=== PATIENT | female | born 1990 ===

== ENCOUNTER 2018-10-28 09:46 | Outpatient (CLI) | payer OTHER | END 2018-10-28 09:47 | disposition home or self-care (01) | LOC: C.LAB 09:46 | DX: Z34.91 Encounter for supervision of normal pregnancy, unspecified, first trimester (principal) ==

== ENCOUNTER 2018-11-12 19:36 | Emergency (ER) | payer OTHER ==
[2018-11-12 19:44] VITALS: RESP 18; TEMP 98.6; O2SAT 100
[2018-11-12] MEDS ORDERED: Sodium Chloride 0.9% 1,000 ML IV STA (19:58)
[2018-11-12 20:09] LABS: BASO # 0.1 K/uL (0.0-0.2); BASO % 0.6 % (0.0-2.0); EOS # 0.1 K/uL (0.0-0.7); EOS % 0.6 % (0.0-4.0); LYMPH # 1.9 K/uL (1.0-4.3); LYMPH % 19.3 % (20.0-40.0); MEAN CELL VOLUME 90.4 fL (81.0-99.0); MEAN CORPUSCULAR HEMOGLOBIN 30.5 pg (27.0-31.0); MEAN CORPUSCULAR HGB CONC 33.7 g/dL (33.0-37.0); MEAN PLATELET VOLUME 8.1 fL (7.2-11.7); MONO # 0.7 K/uL (0.0-0.8); MONO % 6.8 % (0.0-10.0); NEUT # 7.2 K/uL (1.8-7.0); NEUT % 72.7 % (50.0-75.0); RBC 3.95 Mil/uL (3.80-5.20); RED CELL DISTRIBUTION WIDTH 12.9 % (11.5-14.5)
[2018-11-12 20:26] LABS: ALB/GLOB RATIO 1.6 (1.0-2.1); ALBUMIN 4.2 g/dL (3.5-5.0); ALT/SGPT 16 U/L (9-52); AST/SGOT 17 U/L (14-36); BLOOD UREA NITROGEN 9 mg/dL (7-17); GFR NON-AFRICAN AMERICAN > 60
--- NOTE | 2018-11-12 21:50 | C.PDOC ---
History Of Present Illness 28 y/o female, who is 11 weeks , comes in to ED complaining of left groin pain and vaginal spotting that started 10 minutes prior to arrival. Patient states she started seeing a core dipper 3-4 weeks ago and had US done that was normal. Patient has no other complaints. Time Seen by Provider: 11/12/18 19:57 Chief Complaint (Nursing): Female Genitourinary History Per: Patient History/Exam Limitations: no limitations Onset/Duration Of Symptoms: Hrs Current Symptoms Are (Timing): Still Present Past Medical History Reviewed: Historical Data, Nursing Documentation, Vital Signs Vital Signs: Last Vital Signs Temp 98.6 F 11/12/18 19:39 Pulse 110 H 11/12/18 19:39 Resp 18 11/12/18 19:39 BP 121/82 11/12/18 19:39 Pulse Ox 100 11/12/18 19:39 Surgical History: Tonsillectomy Family History: States: No Known Family Hx - Social History Hx Alcohol Use: No Hx Substance Use: No - Immunization History Hx Tetanus Toxoid Vaccination: No Hx Influenza Vaccination: No Hx Pneumococcal Vaccination: No Review Of Systems Except As Marked, All Systems Reviewed And Found Negative. Constitutional: Negative for: Fever, Chills Gastrointestinal: Negative for: Nausea, Vomiting, Diarrhea Genitourinary: Positive for: Other (Left groin pain; vaginal spotting) Physical Exam - Physical Exam Appears: Non-toxic, No Acute Distress Skin: Warm, Dry Head: Atraumatic, Normacephalic Eye(s): bilateral: Normal Inspection Oral Mucosa: Moist Neck: Supple Cardiovascular: Rhythm Regular, No Murmur Respiratory: Normal Breath Sounds, No Rales, No Rhonchi, No Wheezing Gastrointestinal/Abdominal: Soft, Tenderness (mild tenderness in left suprapubic area) Extremity: Bilateral: Atraumatic, Normal Color And Temperature, Normal ROM Neurological/Psych: Oriented x3, Normal Speech ED Course And Treatment - Laboratory Results Result Diagrams: 11/12/18 20:06 11/12/18 20:06 Lab Results: Total Bilirubin 0.2 mg/dL (0.2-1.3) 11/12/18 20:06 AST 17 U/L (14-36) 11/12/18 20:06 ALT 16 U/L (9-52) 11/12/18 20:06 Alkaline Phosphatase 34 U/L (38-126) L 11/12/18 20:06 Total Protein 6.9 g/dL (6.3-8.3) 11/12/18 20:06 Albumin 4.2 g/dL (3.5-5.0) 11/12/18 20:06 Globulin 2.7 gm/dL (2.2-3.9) 11/12/18 20:06 Albumin/Globulin Ratio 1.6 (1.0-2.1) 11/12/18 20:06 Beta HCG, Quant 786276.00 mIU/ML 11/12/18 20:06 O2 Sat by Pulse Oximetry: 100 (RA) Pulse Ox Interpretation: Normal - CT Scan/US OB US Other Rad Studies (CT/US): Read By Radiologist, Radiology Report Reviewed CT/US Interpretation: COMMENTS: A single intrauterine is identified with crown/rump length of 4 cm, which corresponds to the mean estimated gestational age of 10 weeks 6 days. heart motion is present, 154 beats per minute. Yolk sac is identified measuring 0.5 cm. pole is identified. Gestational sac measures 6.03 cm, mean sac diamter. This will correlate with age obtained by CRL method. Subchorionic bleeding is seen measuring 1.3 x 0.8 x 0.7 cm. The uterus is anteverted measuring 11.2 x 7.9 x 8.4 cm without masses seen. The right ovary measures 3.4 x 2.7 x 2.9 cm. The left ovary measures 3.3 x 1.5 x 3.3 cm. Blood flow is demonstrated within both ovaries. The left ovary is free of solid or cystic mass. Right ovarian corpus luteum cyst is seen. The cervix is closed measuring 4.6 cm and closed. There is no evidence of free fluid within the pelvic cul-de-sac. IMPRESSION: 1. Single, live, intrauterine gestation, 10 weeks 6 days based on todays crown/rump length. 2. Subchorionic bleeding. 3. Right ovarian corpus luteum cyst. . Electronically signed on Nov 12, 2018 9:45:20 PM EST by: Rj Saucedo M.D., [place] Certified By [facility]BR & [facility]. Fellowship Trained MRI and CT Specialist Progress Note: Bloodwork and pelvic US ordered. IV fluids administered. On re- evaluation patient feels better and is stable to be d/c home with PMD/OBGYN follow up. Disposition - Disposition Referrals: Edward Tabor MD [Staff Provider] - Disposition: HOME/ ROUTINE Disposition Time: 22:32 Condition: STABLE Additional Instructions: Follow up with PMD and OBGYN within 1-2 days. Return to ED immediately if feel worse. Instructions: Threatened Miscarriage (DC), Bleeding With (DC) Forms: [employer] (Sami) Print Language: KOREAN - Clinical Impression Clinical Impression: Subchorionic hematoma in first trimester, Vaginal bleeding affecting early - PA / RETAIL CUSTOMER SERVICE REPRESENTATIVE / Resident Statement MD/DO has reviewed & agrees with the documentation as recorded. - Scribe Statement The provider has reviewed the documentation as recorded by the Scribkarena Sinha All medical record entries made by the Tamaribe were at my direction and personally dictated by me. I have reviewed the chart and agree that the record accurately reflects my personal performance of the history, physical exam, medical decision making, and the department course for this patient. I have also personally directed, reviewed, and agree with the discharge instructions and disposition.
[2018-11-12 22:10] VITALS: BP 96/66; PULSE 84
--- NOTE | 2018-11-13 11:21 | US ---
Date of service: 11/12/2018 PROCEDURE: OB Pelvic Ultrasound HISTORY: , bleeding LMP: 08/27/2018 COMPARISON: None available. FINDINGS: UTERUS: Gestational sac: Single intrauterine gestation. Heart rate: 152 bpm. age (Ultrasound estimated): 10 weeks 6 days +/-1 week 0 day Mindy-gestational hemorrhage: None. Date of delivery (Ultrasound estimated) : 06/04/2019 Uterus measures 11.2 x 8.4 x 7.5 cm. Normal in size and appearance. CERVIX: Measures 4.6 cm. Long and closed. No cervical abnormality seen. RIGHT OVARY: Measures 3.4 x 2.7 x 2.9 cm. No mass lesion. Normal flow. Right ovary complex cyst measures 2.1 x 2 x 2.1 centimeter likely represent corpus luteum cyst. LEFT OVARY: Measures 3.3 x 1.5 x 3.3 cm. No solid mass. Normal flow. FREE FLUID: None. OTHER FINDINGS: None IMPRESSION: Single intrauterine live with ultrasound estimated gestational age of 10 weeks 6 days +/-1 week 0 day. Estimated date of delivery by ultrasound is 06/04/2019. Right ovarian corpus luteum cyst. Preliminary report was submitted by [facility] contains concordant findings.
== END 2018-11-12 23:14 | disposition home or self-care (01) ==
LOC: C.ER 19:36
DX: O20.9 Hemorrhage in early pregnancy, unspecified (principal); Z3A.11 11 weeks gestation of pregnancy
CPT/HCPCS: 76805; 76817; 80053; 84702; 85025; 86850; 86900; 96360; 99284; J7030

== ENCOUNTER 2018-12-16 08:42 | Outpatient (CLI) | payer OTHER | END 2018-12-16 08:43 | disposition home or self-care (01) | LOC: C.LAB 08:42 | DX: Z34.82 Encounter for supervision of other normal pregnancy, second trimester (principal) ==

== ENCOUNTER 2019-02-14 08:43 | Outpatient (CLI) | payer OTHER | END 2019-02-14 08:44 | disposition home or self-care (01) | LOC: C.LAB 08:43 | DX: Z34.82 Encounter for supervision of other normal pregnancy, second trimester (principal) ==